=== PATIENT | female | born 1980 | race African-American/Black ===

== ENCOUNTER 2020-11-23 14:24 | Emergency (ER) | payer OTHER ==
[2020-11-23 14:39] VITALS: BP 119/65; PULSE 99; TEMP 98.8; BMI 29.1
[2020-11-23] MEDS ORDERED: ACETAMINOPHEN 325 MG TABLET (FP) PO ONE (15:27)
[2020-11-23] MEDS ORDERED: ONDANSETRON *ODT* 4 MG TABLET SL ONE (15:27)
[2020-11-23] MEDS ORDERED: guaiFENesin 200 MG/10 ML 10 ML UNIT-DOSE CUPS PO ONE (15:28)
[2020-11-23] MEDS ORDERED: ONDANSETRON *ODT* 4 MG TABLET ONE (15:51)
[2020-11-23] MEDS ORDERED: guaiFENesin/D-METHORPHAN HB 10 ML UNIT-DOSE CUPS ONE (15:51)
[2020-11-23] MEDS ORDERED: ACETAMINOPHEN 500 MG TABLET (FP) ONE (15:51)
== END 2020-11-23 17:21 | disposition home or self-care (01) ==
LOC: JERFT 14:24
DX: U07.1 COVID-19 (principal)
CPT/HCPCS: 71046-TC-FY; 99284-25; C9803; Q0162; U0003; U0005

== ENCOUNTER 2023-06-14 12:46 | Emergency (ER) | payer OTHER ==
[2023-06-14 12:58] VITALS: BP 114/79; PULSE 109; RESP 18; TEMP 100.7; BMI 29.9
[2023-06-14 14:31] LABS: THROAT:GRP A STREP NOT DETECTED (NOTDETECTED)
[2023-06-14] MEDS ORDERED: IBUPROFEN 600 MG TABLET (FP) PO ONE (15:16)
[2023-06-14] MEDS: IBUPROFEN 600 MG TABLET (FP) PO ONE (15:18)
== END 2023-06-14 16:39 | disposition home or self-care (01) ==
LOC: JERFT 12:46
DX: R50.9 Fever, unspecified (principal); R05.9 Cough, unspecified; J10.1 Influenza due to other identified influenza virus with other respiratory manifestations; Z20.822 Contact with and (suspected) exposure to COVID-19
CPT/HCPCS: 0241U-QW; 71046-TC-FY; 87651; 99284-25

== ENCOUNTER 2024-07-25 17:07 | Emergency (ER) | payer OTHER ==
[2024-07-25 17:19] VITALS: RESP 20; TEMP 98.6; BMI 29.9
[2024-07-25 18:01] VITALS: BP 111/76; PULSE 72
[2024-07-25] MEDS ORDERED: MECLIZINE HCL 25 MG TABLET (FP) ONE (19:31)
[2024-07-25] MEDS: MECLIZINE HCL 25 MG TABLET (FP) PO ONE (19:35)
[2024-07-25] MEDS ORDERED: PSEUDOEPHEDRINE HCL 60 MG TABLET ONE (20:04)
[2024-07-25] MEDS: PSEUDOEPHEDRINE HCL 30 MG TABLET PO ONE (20:07)
== END 2024-07-25 20:10 | disposition home or self-care (01) ==
LOC: JER 17:07
DX: R42 Dizziness and giddiness (principal); R09.81 Nasal congestion; R11.0 Nausea; R50.9 Fever, unspecified
CPT/HCPCS: 0241U-QW; 84703; 99283-25